=== PATIENT | female | born 1975 | race Two or more races ===

== ENCOUNTER 2024-10-02 13:50 | Emergency (ER) | payer OTHER ==
[~2024-10-02] VITALS: Ht 167.6 cm; Wt 83.9 kg
[2024-10-02] MEDS ORDERED: SYNTHROID75 MCG PO (15:13)
[2024-10-02] MEDS ORDERED: 0.9 % SODIUM CHLORIDE 1,000 ML IV STA (17:45)
[2024-10-02] MEDS ORDERED: KETOROLAC TROMETHAMINE 30 MG VIAL ONE (17:58)
[2024-10-02] MEDS ORDERED: ONDANSETRON HCL 2 MG/ML VIAL ONE (17:58)
[2024-10-02] MEDS ORDERED: FAMOTIDINE/PF 20 MG/2 ML VIAL ONE (17:58)
[2024-10-02] MEDS ORDERED: KETOROLAC TROMETHAMINE 30 MG VIAL IV ONE (18:00)
[2024-10-02] MEDS ORDERED: ONDANSETRON HCL 2 MG/ML VIAL IV ONE (18:00)
[2024-10-02] MEDS ORDERED: FAMOTIDINE/PF 20 MG/2 ML VIAL IV ONE (18:00)
[2024-10-02 18:40] LABS: HEMATOCRIT 32.8 % (36.0-45.00); HEMOGLOBIN 10.6 g/dL (12.0-15.00); MEAN CELL VOLUME 74.6 fL (80.00-100.00); MEAN CORPUSCULAR HEMOGLOBIN 24.2 pg (27.00-32.0); MEAN CORPUSCULAR HGB CONC 32.4 g/dl (32.0-36.0); PLATELET COUNT 570 K/uL (150-450); RED CELL DISTRIBUTION WIDTH 15.8 % (11.5-14.5)
[2024-10-02 18:59] LABS: INR 1.02; PARTIAL THROMBOPLASTIN TIME 26.4 SECONDS (22.0-34.0); PROTHROMBIN TIME 11.1 SECONDS (9.0-11.5)
[2024-10-02 19:06] LABS: ALBUMIN 3.4 gm/dL (3.4-5.0); BILIRUBIN TOTAL 0.3 mg/dL (0.3-1.2); CALCIUM 9.4 mg/dL (8.5-10.1); CREATININE SERUM 0.72 mg/dL (0.55-1.02); GFR 86.09; GLOBULINA 5.6 G/DL (2.4-3.5); POTASSIUM 4.47 mEq/L (3.5-5.1)
[2024-10-02 19:26] LABS: URINE APPEARANCE Clear; URINE BILIRRUBIN Negative (NEGATIVE); URINE BLOOD Negative; URINE COLOR Yellow; URINE GLUCOSE Negative (NEGATIVE); URINE KETONE Negative (NEGATIVE); URINE LEUKOCYTE Negative; URINE NITRATE Negative; URINE PROTEIN Negative (NEGATIVE); URINE UROBILINOGEN 0.2 E.U./dl
[2024-10-02 19:29] LABS: URINE BACTERIA 121.1 uL (0.0-1933); URINE EPITHELIAL CELLS 2.2 uL (0.0-38.8); URINE RBC 7.9 uL (0.0-20.8); URINE WBC 3.9 uL (0.0-23.2)
[2024-10-03] MEDS ORDERED: KETOROLAC TROMETHAMINE 30 MG VIAL IV STA (02:11)
[2024-10-03] MEDS ORDERED: KETOROLAC TROMETHAMINE 30 MG VIAL ONE ×2 (02:13→09:24)
[2024-10-03] MEDS ORDERED: KETO10TA2 PO (09:15)
[2024-10-03] MEDS ORDERED: KETOROLAC TROMETHAMINE 30 MG VIAL IV ONE (09:30)
== END 2024-10-03 09:47 | disposition home or self-care (01) ==
LOC: ER 13:53
PROVIDERS: Emergency Medicine
DX: R10.9 Unspecified abdominal pain (principal); N83.292 Other ovarian cyst, left side

== ENCOUNTER 2024-10-03 20:24 | Inpatient (IN) | payer OTHER ==
[~2024-10-03] VITALS: Ht 167.6 cm; Wt 84.4 kg
[~2024-10-03 20:24] MED LIST: KETO10TA2 PO; SYNTHROID75 MCG PO
--- NOTE | 2024-10-03 20:47 | NUR ---
PTE ALERTA Y ORIENTADA X3. REFIERE SER REFERIDA PARA SER ADMITIDA POR . SE JOSHUA BELLAMY Y SE UBICA
[2024-10-04] MEDS ORDERED: RINGERS SOLUTION,LACTATED 1,000 ML IV STA (03:16)
[2024-10-04] MEDS ORDERED: POVIDONE-IODINE 118 ML BOTT TOP ONE (15:21)
[2024-10-04] MEDS ORDERED: METRONIDAZOLE/SODIUM CHLORIDE 500 MG/100 ML PIGGYBACK IV ONE (15:47)
[2024-10-04] MEDS ORDERED: CEFOXITIN SODIUM 2,000 MG VIAL IV ONE (15:47)
[2024-10-04] MEDS ORDERED: THROMBIN,HU/FIBRINOGEN/CALCIUM 10 ML SYRINGE TOP ONE (18:16)
[2024-10-04] MEDS ORDERED: KETOROLAC TROMETHAMINE 30 MG VIAL IV PRN (19:00)
[2024-10-04] MEDS ORDERED: RINGERS SOLUTION,LACTATED 1,000 ML IV SCH (19:00)
[2024-10-04] MEDS ORDERED: MORPHINE SULFATE 4 MG/ML CARTRIDGE IV PRN (19:00)
[2024-10-04] MEDS ORDERED: ONDANSETRON HCL 2 MG/ML VIAL IV PRN (19:00)
[2024-10-04] MEDS ORDERED: SUGAMMADEX SODIUM 200 MG/2 ML VIAL IV ONE (19:16)
[2024-10-04] MEDS ORDERED: MORPHINE SULFATE 4 MG/ML VIAL IV ONE ×2 (20:05→20:35)
[2024-10-04] MEDS ORDERED: SIMETHICONE 125 MG CAPSULE PO SCH (21:00)
[2024-10-04] MEDS ORDERED: FAMOTIDINE/PF 20 MG/2 ML VIAL IV SCH (21:00)
[2024-10-04] MEDS ORDERED: KETOROLAC TROMETHAMINE 30 MG VIAL IV ONE (21:05)
[2024-10-04] MEDS ORDERED: KETOROLAC TROMETHAMINE 30 MG VIAL ONE (21:18)
[2024-10-04] MEDS ORDERED: FAMOTIDINE/PF 20 MG/2 ML VIAL ONE (21:18)
[2024-10-04 23:20] LABS: HEMATOCRIT 29.7 % (36.0-45.00); MEAN CELL VOLUME 74.3 fL (80.00-100.00); MEAN CORPUSCULAR HEMOGLOBIN 24.2 pg (27.00-32.0); MEAN CORPUSCULAR HGB CONC 32.6 g/dl (32.0-36.0); PLATELET COUNT 472 K/uL (150-450); RED CELL DISTRIBUTION WIDTH 15.7 % (11.5-14.5)
[2024-10-04 23:22] LABS: HEMOGLOBIN 9.7 g/dL (12.0-15.00)
[2024-10-05 04:30] VITALS: BP 110/73; O2SAT 95
[2024-10-05 08:00] VITALS: BP 121/78; O2SAT 100
[2024-10-05] MEDS ORDERED: FAMOtidine 20 MG TABLET PO SCH (09:00)
[2024-10-05] MEDS ORDERED: ENOXAPARIN SODIUM 40 MG/0.4 ML SYRINGE SUBCUTANEO SCH (09:00)
[2024-10-05] MEDS ORDERED: NAPROXEN 500 MG TABLET PO PRN (09:45)
[2024-10-05] MEDS ORDERED: IRON FUM,PS/FOLIC/BCOMP,C NO.9 1 CAP CAPSULE PO NR (09:45)
[2024-10-05] MEDS ORDERED: ACETAMINOPHEN WITH CODEINE 1 UDTAB TABLET PO PRN (09:45)
[2024-10-05 16:00] VITALS: BP 117/76; O2SAT 97
[2024-10-05] MEDS ORDERED: MORPHINE SULFATE 4 MG/ML CARTRIDGE IV PRN (16:45)
[2024-10-06 01:26] VITALS: BP 123/79; O2SAT 95
[2024-10-06 08:00] VITALS: BP 111/73; O2SAT 95
[2024-10-06 08:44] LABS: HEMATOCRIT 27.5 % (36.0-45.00); HEMOGLOBIN 9.2 g/dL (12.0-15.00); MEAN CELL VOLUME 73.9 fL (80.00-100.00); MEAN CORPUSCULAR HEMOGLOBIN 24.6 pg (27.00-32.0); MEAN CORPUSCULAR HGB CONC 33.3 g/dl (32.0-36.0); PLATELET COUNT 469 K/uL (150-450); RED BLOOD COUNT 3.73 M/uL (4.00-6.00); RED CELL DISTRIBUTION WIDTH 15.7 % (11.5-14.5)
[2024-10-06] MEDS ORDERED: IRON FUM,PS/FOLIC/BCOMP,C NO.9 1 CAP CAPSULE PO SCH (09:00)
[2024-10-06] MEDS ORDERED: MORPHINE SULFATE 4 MG/ML CARTRIDGE IV PRN (20:45)
[2024-10-07 02:40] VITALS: BP 132/82; O2SAT 94
[2024-10-07] MEDS ORDERED: PROMETHAZINE HCL 25 MG/ML AMPUL IM PRN (02:45)
[2024-10-07 02:55] VITALS: BP 125/76; O2SAT 94
[2024-10-07 08:00] VITALS: BP 125/84; O2SAT 95
[2024-10-07] MEDS ORDERED: LEVOTHYROXINE SODIUM 75 MCG TABLET PO NR (12:15)
[2024-10-07] MEDS ORDERED: CITRIC ACID/SODIUM CITRATE 30 ML BLIST.PACK PO SCH (13:00)
[2024-10-07] MEDS ORDERED: ACETAMINOPHEN WITH CODEINE 1 UDTAB TABLET PO PRN (16:30)
[2024-10-07] MEDS ORDERED: METOCLOPRAMIDE HCL 5 MG/ML VIAL IV SCH (17:00)
[2024-10-07 20:08] VITALS: BP 140/85; O2SAT 95
[2024-10-07] MEDS ORDERED: SUGAMMADEX SODIUM 200 MG/2 ML VIAL IV ONE (22:07)
[2024-10-07] MEDS ORDERED: FAMOTIDINE/PF 20 MG/2 ML VIAL IV PUSH SCH (22:11)
[2024-10-08 01:17] VITALS: BP 125/81; O2SAT 98
[2024-10-08] MEDS ORDERED: LEVOTHYROXINE SODIUM 75 MCG TABLET PO SCH (06:00)
[2024-10-08 08:00] VITALS: BP 132/82; O2SAT 98
[2024-10-08 16:00] VITALS: BP 126/67
[2024-10-09 00:42] VITALS: BP 141/70; O2SAT 98
[2024-10-09 16:50] VITALS: BP 140/84; O2SAT 100
[2024-10-10 03:37] VITALS: BP 115/58
[2024-10-10 08:00] VITALS: BP 116/65
[2024-10-10 16:00] VITALS: BP 143/77; O2SAT 99
[2024-10-10] MEDS ORDERED: FAMOtidine 20 MG TABLET PO SCH (21:00)
[2024-10-11] VITALS: BP 103/63; O2SAT 96
[2024-10-11] MEDS ORDERED: LEVOTHYROXINE SODIUM 75 MCG TABLET PO SCH (06:00)
[2024-10-11 08:16] VITALS: BP 111/73; O2SAT 98
[2024-10-11] MEDS ORDERED: LOVENOX40 MG/0.4 SUBCUTANEO (10:43)
[2024-10-11] MEDS ORDERED: NAPR500T14 PO (10:43)
[2024-10-11] MEDS ORDERED: LEVOTHYROXINE75 MCG PO (10:43)
== END 2024-10-11 11:34 | disposition home or self-care (01) | DRG 738 ==
LOC: ER 20:24 → SEC-K 22:50 → O/R 10-04 14:41 → SURH 10-04 21:58
PROVIDERS: ADMIT Obstetrics & Gynecology; ATTEND Obstetrics & Gynecology
PROC: 0UT90ZZ Resection of Uterus, Open Approach (ICD-10-PCS; 2024-10-04)
PROC: 0UT70ZZ Resection of Bilateral Fallopian Tubes, Open Approach (ICD-10-PCS; 2024-10-04)
PROC: 0DBW0ZZ Excision of Peritoneum, Open Approach (ICD-10-PCS; 2024-10-04)
PROC: 0DBU0ZZ Excision of Omentum, Open Approach (ICD-10-PCS; 2024-10-04)
PROC: 0DNM0ZZ Release Descending Colon, Open Approach (ICD-10-PCS; 2024-10-04)
PROC: 0DNW0ZZ Release Peritoneum, Open Approach (ICD-10-PCS; 2024-10-04)
PROC: 07BC0ZZ Excision of Pelvis Lymphatic, Open Approach (ICD-10-PCS; 2024-10-04)
PROC: 07BD0ZZ Excision of Aortic Lymphatic, Open Approach (ICD-10-PCS; 2024-10-04)
PROC: 3E1M38Z Irrigation of Peritoneal Cavity using Irrigating Substance, Percutaneous Approach (ICD-10-PCS; 2024-10-04)
PROC: 0UT20ZZ Resection of Bilateral Ovaries, Open Approach (ICD-10-PCS; principal; 2024-10-04 15:30)
PROC: BW21Y0Z Computerized Tomography (CT Scan) of Abdomen and Pelvis using Other Contrast, Unenhanced and Enhanced (ICD-10-PCS; 2024-10-08)
DX: C56.2 Malignant neoplasm of left ovary (principal); N84.0 Polyp of corpus uteri; N80.102 Endometriosis of left ovary, unspecified depth; N80.202 Endometriosis of left fallopian tube, unspecified depth; R10.2 Pelvic and perineal pain; R19.04 Left lower quadrant abdominal swelling, mass and lump